=== PATIENT | male | born 1965 | race Caucasian/White ===

== ENCOUNTER → 2016-05-15 | Outpatient (CLI) | payer BC ==
[2016-05-15 12:43] LABS: CH 30.6; CHCM 33.1; HCT 45.3 % (39.0-53.0); HDW 2.49; HGB 14.9 gm/dL (13.0-17.5); MCH 30.5 pg (25.0-35.0); MCHC 32.8 g/dL (31.0-37.0); MCV 92.9 fL (80.0-100.0); Mean Platelet Volume 8.7; RBC 4.87 m/uL (4.30-5.90); WBC 4.7 k/uL (3.8-10.6)
[2016-05-15 13:46] LABS: Follicle Stimulating Hormone 3.2 mIU/mL (1.6-9.7); Prolactin 9.1 ng/mL (3.7-17.9)
== END | disposition home or self-care (01) ==
LOC: LABWHC1 12:10
PROVIDERS: ATTEND Internal Medicine Endocrinology, Diabetes & Metabolism
DX: E29.1 Testicular hypofunction (principal); R53.83 Other fatigue
CPT/HCPCS: 36415; 82024; 82533; 83001; 83002; 84146; 84403; 84439; 84443; 85027